=== PATIENT | male | born 2000 | race African-American/Black ===

== ENCOUNTER 2022-06-24 22:35 | Emergency (ER) | payer OTHER ==
--- OUTSIDE RECORDS SUMMARY | 2022-06-24 22:39 | XMS REPORT | Continuity of Care Document ---
:2000 Author Organization [facility] t Address [address] [place] [address] Care Team Providers Name Role Phone OLENA MAIER Attending Clinician Unavailable YOLANDA DUMONT Attending Clinician Unavailable Payers Payer Name Policy Type Policy Number Effective Date Expiration Date [facility] [employer] 9 [id number] 2019 [employer] 00:00:00 Problems This patient has no known problems. Allergies, Adverse Reactions, Alerts This patient has no known allergies or adverse reactions. Social History Social Habit Start Date Stop Date Quantity Comments Source Sex Assigned At Male [facility] Smoking Status Start Date Stop Date Source Unknown if ever [facility] Medications This patient has no known medications. Procedures Procedure Date / Time Performed Performing Clinician Sourc e Infectious agent detection by 2020-04-15 [facility] (DNA or Encounters Start End Encounter Admission Attending Care Care Encounter Source Date/Time Date/Time Type Type Clinicians Facility Department ID 2022-05-13 2022-05-13 Outpatient GONZALEZ MAIER [id number] 15:00:00 15:00:00 OLENA lindsey 2020-04-15 2020-04-15 Outpatient JULIA [facility] [id number] [facility] 00:00:00 00:00:00 YOLANDA nguyen 2020-04-15 2020-04-15 Outpatient JULIA [facility] [id number] Access 00:00:00 00:00:00 YOLANDA Santos [id number] -a [facility] [id number] [facility] [id number] Results Test Description Test Time Test Comments Results Result Comments Source Panel Description: SARS-CoV-2 (COVID-19) RNA [Presence] in 2 02:24:00 Unspecified specimen by GWEN with probe detection Test Item Value Reference Range Interpretation Comme nts SARS-CoV-2, GWEN (test Not Detected Not Detected Testin g was performed using the code = 79431-1) Aptima SARS- CoV-2 assay.This test was developed a nd its performance characteristics determinedby [facility]. This test has not been FD A cleared orapproved. Thi s test has been authorized by Theron MONCADA under an Emergency UseAu thorization (EUA). This test is on ly authorized for the duration of time the declaration adam t circumstances exist justifyin g theauthorization of the emergenc y use of in vitro diagnostic test s fordetection of SARS-CoV-2 viru s and/or diagnosis of COVID-19 inf ectionunder section 564(b)( 1) of the Act, 21 U.S.C. 360bbb-3 (b)(1), unlessthe authorization i s terminated or revoked sooner. When diagnostic testing is nega tive, the possibility of a falsenegative result should b e considered in the context of a patient'srecent exposures and t he presence of clinical signs and symptomsconsist ent with COVID-19. An individual w ithout symptoms of COVID-19and who is not shedding SARS-CoV-2 viru s would expect to have anegative (not detected) result in this assay.
< br/>Performed by:
Toya Rosado (OSWALDO)

[facility] Description: SARS-CoV-2 (COVID-19) RNA [Presence] in Unspecified specimen by GWEN with probe [id number] 02:24:00 Test Item Value Reference Range Interpretation Comments SARS-CoV-2, Not Detected Not Detected Testing was per formed using GWEN (test code the Aptima SA RS-CoV-2 = 33661-8) assay.This test was developed and i ts performance lina racteristics determinedby [address]. T his test has not been FDA cl eared orapproved. Thi s test has been authorized by FDA under an Emerge ncy UseAuthorizatio n (EUA). This test is on ly authorized for the duration oftime the decl aration that circumstances e xist justifying hiram uthorization of the emergenc y use of in vitro diagnosti c tests fordetection of SARS-CoV-2 virus and/or di agnosis of COVID-19 infect ionunder section 564(b)( 1) of the Act, 21 U.S.C. 360bbb-3(b)(1), unlessthe authorization i s terminated or revoked soon er.When diagnostic test ing is negative, the p ossibility of a falsenegat erinn result should be consi dered in the context of a patient'srecent exposures and the presenc e of clinical signs and symptomsconsist ent with COVID-19. An in dividual without symptom s of COVID-19and who is not shedding SARS-C oV-2 virus would expect to have anegative (not detected) result in this assay.
< br/>Performe d by:
[facility] clarissa Rosado (OSWALDO)

[facility]
[2022-06-24 23:45] LABS: Urine Blood Negative (Negative); Urine Glucose Negative (Negative); Urine Protein Negative (Negative); Urine Specific Gravity >=1.030 (1.005-1.030)
[2022-06-24 23:48] LABS: Absolute Lymphocytes (CBC) 0.6 K/uL (0.7-4.9); Hematocrit 44.6 % (39.6-49.0); Lymphocytes % 6.8 % (15.3-44.8); MCV 95.2 fL (80-100); MPV 7.7 fL (7.6-11.3); RBC Red Blood Cell Count 4.69 M/uL (4.33-5.43)
[2022-06-24 23:58] LABS: Albumin 4.2 g/dL (3.4-5.0); Bilirubin Total 1.1 mg/dL (0.2-1.0); Potassium 4.1 mmol/L (3.5-5.1); Protein, Total 8.2 g/dL (6.4-8.2)
[2022-06-24] MEDS ORDERED: ONDANSETRON 4 MG/2 ML VIAL ONE (23:58)
[2022-06-24] MEDS ORDERED: FAMOTIDINE 20 MG/2 ML VIAL IV ONE (23:58)
--- NOTE | 2022-06-25 01:55 | EDPHYS ---
Physician Documentation [facility] Name: Agusto Padgett Age: 21 yrs Sex: Male : 2000 Arrival Date: 06/24/2022 Time: 22:38 Bed 2 Private MD: ED Physician Jayson Hollingsworth HPI: 06/24 23:30 This 21 yrs old Black Male presents to ER via Ambulatory with complaints of Abdominal cp Cramping, Nausea/Vomiting. 23:30 The patient presents to the emergency department with vomiting, 2 times today, cp diarrhea, 1 times today, abdominal pain, described as crampy. Onset: The symptoms/episode began/occurred this morning, pain now resolved. 23:30 Possible causes: unknown. Associated signs and symptoms: Pertinent negatives: fever, GI cp bleeding. Patient reports nausea, but denies abdominal pain at this time. Reports symptoms started with upset stomach earlier today and nausea. Forced himself to vomit and had 1 episode of diarrhea. Historical: - Allergies: 22:47 No Known Allergies; kb3 - Home Meds: 22:47 None [Active]; kb3 - PMHx: 22:47 None; kb3 - PSHx: 22:47 None; kb3 - Immunization history:: Adult Immunizations up to date, Client reports having NOT received the Covid vaccine. Last tetanus immunization: up to date. - Social history:: Smoking status: Reported history of juuling and/or vaping. ROS: 23:35 Constitutional: Negative for body aches, chills, fever, poor PO intake. cp 23:35 Eyes: Negative for injury, pain, redness, and discharge. cp 23:35 ENT: Negative for drainage from ear(s), ear pain, sore throat, difficulty swallowing, difficulty handling secretions. 23:35 Cardiovascular: Negative for chest pain, palpitations. 23:35 Respiratory: Negative for cough, shortness of breath, wheezing. 23:35 Abdomen/GI: Positive for nausea, vomiting, diarrhea, abdominal cramps, Negative for abdominal pain. 23:35 Back: Negative for pain at rest, pain with movement. 23:35 Neuro: Negative for altered mental status, headache, weakness. 23:35 All other systems are negative. Exam: 23:40 Constitutional: The patient appears in no acute distress, alert, awake, comfortable, cp non-toxic, well developed, well nourished. 23:40 Head/Face: Normocephalic, atraumatic. cp 23:40 Eyes: Periorbital structures: appear normal, Conjunctiva: normal, no exudate, no injection, Sclera: no appreciated abnormality, Lids and lashes: appear normal, bilaterally. 23:40 ENT: External ear(s): are unremarkable, Nose: is normal, Mouth: Lips: moist, Oral mucosa: pink and intact, moist, Posterior pharynx: Airway: no evidence of obstruction, patent. 23:40 Chest/axilla: Inspection: normal, Palpation: is normal, no crepitus, no tenderness. 23:40 Cardiovascular: Rate: tachycardic, Rhythm: regular. 23:40 Respiratory: the patient does not display signs of respiratory distress, Respirations: normal, no use of accessory muscles, no retractions, labored breathing, is not present, Breath sounds: are clear throughout, no decreased breath sounds, no stridor, no wheezing. 23:40 Abdomen/GI: Inspection: abdomen appears normal, Bowel sounds: active, all quadrants, Palpation: abdomen is soft and non-tender, in all quadrants, rebound tenderness, is not appreciated, voluntary guarding, is not appreciated, involuntary guarding, is not appreciated. 23:40 Back: pain, is absent, ROM is normal. 23:40 Skin: no rash present. 23:40 Neuro: Orientation: to person, place \\T\\ time. Mentation: is normal. Vital Signs: 22:45 BP 131 / 84; Pulse 106; Resp 18; Temp 98.7; Pulse Ox 98% ; Weight 61.23 kg; Height 5 kb3 ft. 8 in. (172.72 cm); Pain 3/10; 06/25 00:15 BP 130 / 75; Pulse 60; Resp 17; Pulse Ox 100% ; vc1 00:45 BP 121 / 75; Pulse 55; Resp 18; Pulse Ox 100% ; vc1 01:15 BP 121 / 69; Pulse 75; Resp 17; Pulse Ox 99% ; vc1 06/24 22:45 Body Mass Index 20.53 (61.23 kg, 172.72 cm) kb3 MDM: 06/24 22:51 Patient medically screened. cp 06/25 01:55 Data reviewed: vital signs, nurses notes, lab test result(s). cp 01:55 Differential diagnosis: gastritis, cholecystitis, appendicitis, viral gastroenteritis, cp gastroenteritis. Counseling: I had a detailed discussion with the patient and/or guardian regarding: the historical points, exam findings, and any diagnostic results supporting the discharge/admit diagnosis, lab results, to return to the emergency department if symptoms worsen or persist or if there are any questions or concerns that arise at home. Response to treatment: the patient's symptoms have markedly improved after treatment, and as a result, I will discharge patient. 06/24 23:13 Order name: CBC with Diff; Complete Time: 00:18 06/25 00:48 Interpretation: Normal except: SHRUTHI% 85.8; LYM% 6.8; LYMA 0.6. cp 06/24 23:13 Order name: CMP; Complete Time: 00:18 06/25 00:48 Interpretation: Normal except: NA 135; GFR 84; AST 14; BILIT 1.1; GLOB 4.0. cp 06/24 23:13 Order name: Lipase; Complete Time: 00:18 06/24 23:45 Order name: Urine Dipstick-Ancillary; Complete Time: 00:18 EDMS 06/24 23:53 Order name: SARS-COV-2 RT PCR (Document "Date of Onset" if Symptomatic) vc1 06/24 23:13 Order name: IV Saline Lock; Complete Time: 23:23 06/24 23:13 Order name: Labs collected and sent; Complete Time: 23:23 06/24 23:13 Order name: Urine Dipstick-Ancillary (obtain specimen); Complete Time: 23:47 06/25 00:49 Order name: PO challenge; Complete Time: 01:35 cp Administered Medications: 06/24 23:57 Drug: Zofran (Ondansetron) 4 mg Route: IVP; Site: left antecubital; vc1 23:57 Drug: Pepcid (famotidine) 20 mg Route: IVP; Site: left antecubital; vc1 Disposition Summary: 06/25/22 01:55 Discharge Ordered Location: Home cp Problem: new cp Symptoms: have improved cp Condition: Stable cp Diagnosis - Nausea with vomiting, unspecified cp - Diarrhea, unspecified cp Followup: cp - With: Private Physician - When: 2 - 3 days - Reason: Worsening of condition Discharge Instructions: - Discharge Summary Sheet cp - Food Choices to Help Relieve Diarrhea, Adult cp - Diarrhea, Adult cp - Nausea and Vomiting, Adult cp - Form - Excuse from Work, School, or Physical Activity cp Forms: - Medication Reconciliation Form cp - Thank You Letter cp - Antibiotic Education cp - Prescription Opioid Use cp Prescriptions: - Zofran 4 mg Oral Tablet - take 1 tablet by ORAL route every 12 hours As needed; 20 tablet; Refills: 0, cp Product Selection Permitted Signatures: Dispatcher [employer] EDMS Jayson Martin PA PA cp Kale Renae RN RN as6 Stephanie Arzola RN RN vc1 Loraine Mckeon PA PA sb3 Sara Hernandez, RN RN kb3
--- NOTE | 2022-06-25 01:55 | ER ---
Nurse's Notes [facility] Name: Agusto Padgett Age: 21 yrs Sex: Male : 2000 Arrival Date: 06/24/2022 Time: 22:38 Bed 2 Private MD: Diagnosis: Nausea with vomiting, unspecified;Diarrhea, unspecified Presentation: 06/24 22:45 Chief complaint: Patient states: Pt reports abdominal cramping. chills, diarrhea x1 kb3 episode, vomiting x2 episodes since this morning. Coronavirus screen: Vaccine status: Patient reports being unvaccinated. Client denies travel out of the [place] in the last 14 days. Ebola Screen: Patient negative for fever greater than or equal to 101.5 degrees Fahrenheit, and additional compatible Ebola Virus Disease symptoms Patient denies exposure to infectious person. Patient denies travel to an Ebola-affected area in the 21 days before illness onset. Initial Sepsis Screen: Does the patient meet any 2 criteria? No. Patient's initial sepsis screen is negative. Does the patient have a suspected source of infection? No. Patient's initial sepsis screen is negative. Risk Assessment: Do you want to hurt yourself or someone else? Patient reports no desire to harm self or others. Onset of symptoms was June 24, 2022 at 08:00. 22:45 Method Of Arrival: Ambulatory kb3 22:45 Acuity: TOMI 3 kb3 Triage Assessment: 22:47 General: Appears in no apparent distress. comfortable, Behavior is calm, cooperative. kb3 Pain: Complains of pain in abdomen Pain does not radiate. Pain currently is 3 out of 10 on a pain scale. Quality of pain is described as crampy. 23:00 GI: Reports diarrhea, nausea. vc1 Historical: - Allergies: 22:47 No Known Allergies; kb3 - Home Meds: 22:47 None [Active]; kb3 - PMHx: 22:47 None; kb3 - PSHx: 22:47 None; kb3 - Immunization history:: Adult Immunizations up to date, Client reports having NOT received the Covid vaccine. Last tetanus immunization: up to date. - Social history:: Smoking status: Reported history of juuling and/or vaping. Screenin:00 Abuse screen: Denies threats or abuse. Nutritional screening: No deficits noted. vc1 Tuberculosis screening: No symptoms or risk factors identified. Fall Risk None identified. Assessment: 23:00 GI: Bowel sounds present X 4 quads. Abd is soft Abd is non tender. vc1 06/25 00:00 Reassessment: No changes from previously documented assessment. Patient and/or family vc1 updated on plan of care and expected duration. Pain level reassessed. 01:00 Reassessment: No changes from previously documented assessment. Patient and/or family vc1 updated on plan of care and expected duration. Pain level reassessed. Patient is alert, oriented x 3, equal unlabored respirations, skin warm/dry/pink. Patient states symptoms have improved. 02:00 Reassessment: No changes from previously documented assessment. Patient and/or family vc1 updated on plan of care and expected duration. Pain level reassessed. Patient is alert, oriented x 3, equal unlabored respirations, skin warm/dry/pink. Patient states feeling better. Vital Signs: 06/24 22:45 BP 131 / 84; Pulse 106; Resp 18; Temp 98.7; Pulse Ox 98% ; Weight 61.23 kg; Height 5 kb3 ft. 8 in. (172.72 cm); Pain 3/10; 06/25 00:15 BP 130 / 75; Pulse 60; Resp 17; Pulse Ox 100% ; vc1 00:45 BP 121 / 75; Pulse 55; Resp 18; Pulse Ox 100% ; vc1 01:15 BP 121 / 69; Pulse 75; Resp 17; Pulse Ox 99% ; vc1 06/24 22:45 Body Mass Index 20.53 (61.23 kg, 172.72 cm) kb3 ED Course: 06/24 22:38 Patient arrived in ED. jj6 22:47 Triage completed. kb3 22:47 Arm band placed on right wrist. kb3 22:50 Jayson Martin PA is PHCP. cp 22:51 Jayson Hollingsworth MD is Attending Physician. cp 23:00 Bed in low position. Call light in reach. Pulse ox on. NIBP on. vc1 23:23 Inserted saline lock: 20 gauge in left antecubital area, using aseptic technique. Blood aa9 collected. 23:45 Solange Starr, RN is Primary Nurse. aa9 06/25 02:05 No provider procedures requiring assistance completed. IV discontinued, intact, vc1 bleeding controlled, No redness/swelling at site. Pressure dressing applied. Administered Medications: 06/24 23:57 Drug: Zofran (Ondansetron) 4 mg Route: IVP; Site: left antecubital; vc1 23:57 Drug: Pepcid (famotidine) 20 mg Route: IVP; Site: left antecubital; vc1 Medication: 06/25 02:06 VIS not applicable for this client. vc1 Outcome: 01:55 Discharge ordered by . yong 02:05 Discharged to home ambulatory, with family. vc1 02:05 Condition: good 02:05 Discharge instructions given to patient, Instructed on discharge instructions, follow up and referral plans. medication usage, Demonstrated understanding of instructions, follow-up care, medications, Prescriptions given X 1. 02:11 Patient left the ED. vc1 Signatures: Jayson Martin PA PA cp Jeffries, Jennifer jj6 Stephanie Arzola RN RN vc1 Solange Starr RN RN aa9 Sara Hernandez RN RN kb3
[2022-06-25 04:46] VITALS: TEMP 98.7
[2022-06-25 04:53] VITALS: BP 121/69; O2SAT 99
== END 2022-06-25 02:11 | disposition home or self-care (01) ==
LOC: ER 22:35
DX: R11.2 Nausea with vomiting, unspecified (principal); R19.7 Diarrhea, unspecified; Z20.822 Contact with and (suspected) exposure to COVID-19
CPT/HCPCS: 85025; 36415; 81003; 83690; 80053; U0003; J2405; 96374; 96375; 99284